=== PATIENT | female | born 1985 | race Caucasian/White ===

== ENCOUNTER 2018-04-19 10:36 | Emergency (ER) | payer BC ==
[2018-04-19 11:31] VITALS: BP 126/88
--- NOTE | 2018-04-19 11:43 | UC ---
General HPI - HPI Summary HPI Summary: PT NOTED A STY TO HER L UPPER EYE LID THE PAST FEW DAYS THAT SHE WAS WARM COMPRESSING. LAST PM IT CAME TO A HEAD. SHE APPLIED PRESSURE IT IT RUPTURED. DRY BLOOD TO SITE TODAY. WANTS TO MAKE SURE IT LOOKS OK. - History of Current Complaint Chief Complaint: UCYogesh Stated Complaint: LEFT EYE CONCERN Time Seen by Provider: 04/19/18 11:34 Hx Obtained From: Patient Hx Last Menstrual Period: 04/19/18 Onset/Duration: Gradual Onset Timing: Constant Pain Intensity: 0 Associated Signs & Symptoms: Negative: Fever - Allergy/Home Medications Allergies/Adverse Reactions: Allergies Allergy/AdvReac Type Severity Reaction Status Date / Time No Known Allergies Allergy Verified 04/19/18 11:26 Home Medications: Home Medications Dextroamphetamine/Amphetamine [Adderall Xr 30 mg Capsule] 30 mg PO ONCE PRN [History Confirmed 04/19/18] PMH/Surg Hx/FS Hx/Imm Hx - Additional Past Medical History Additional PMH: ADD - Surgical History Surgical History: None - Family History Known Family History: Positive: Non-Contributory - Social History Alcohol Use: None Substance Use Type: None Smoking Status (MU): Never Smoked Tobacco - Immunization History Vaccination Up to Date: Yes Review of Systems All Other Systems Reviewed And Are Negative: Yes Constitutional: Positive: Negative Skin: Positive: Negative Eyes: Positive: Negative ENT: Positive: Negative Respiratory: Positive: Negative Cardiovascular: Positive: Negative Gastrointestinal: Positive: Negative Genitourinary: Positive: Negative Motor: Positive: Negative Neurovascular: Positive: Negative Musculoskeletal: Positive: Negative Neurological: Positive: Negative Psychological: Positive: Negative Physical Exam Triage Information Reviewed: Yes Appearance: Well-Appearing Vital Signs: Initial Vital Signs Temp 98 F 04/19/18 11:27 Pulse 98 04/19/18 11:27 Resp 16 04/19/18 11:27 BP 126/88 04/19/18 11:27 Pulse Ox 100 04/19/18 11:27 Vital Signs Reviewed: Yes Eyes: Positive: Other: - NO PERIORBITAL EDEMA OR ERYTHEMA. DRY SPOT OF BLOOD TO CENTER OF L UPPER MID LASH LINE. CONJUNCTIVA CLEAR. PERRL. EOMI. ENT: Positive: Normal ENT inspection, Other - NO AURICULAR ADENOPATHY. Neck: Positive: Supple, Nontender, No Lymphadenopathy Respiratory: Positive: Lungs clear, Normal breath sounds Cardiovascular: Positive: RRR, No Murmur Abdomen Description: Positive: Nontender, No Organomegaly, Soft Bowel Sounds: Positive: Present Musculoskeletal: Positive: ROM Intact Neurological: Positive: Alert Psychological: Positive: Age Appropriate Behavior Skin Exam: Normal Course/Dx - Course Course Of Treatment: RUPTURED STY. NO CELLULITIS - Differential Dx - Multi-Symptom Provider Diagnoses: STY L UPPER LID Discharge - Sign-Out/Discharge Documenting (check all that apply): Patient Departure All imaging exams completed and their final reports reviewed: No Studies - Discharge Plan Condition: Stable Disposition: HOME Prescriptions: Erythromycin OPTH OINT* [Erythromycin 0.5% OPTH OINT*] 1 applic LEFT EYE TID 7 Days #1 ophth.oint Patient Education Materials: Goldy (ED) Referrals: DENISSE Pisano [Medical Doctor] - Additional Instructions: FOLLOW UP IN 5-7 DAYS IF NOT BETTER OR SOONER IF WORSE. - Billing Disposition and Condition Condition: STABLE Disposition: Home
== END 2018-04-19 11:53 | disposition home or self-care (01) ==
LOC: UCCORT 10:36
DX: H00.014 Hordeolum externum left upper eyelid (principal); F98.8 Other specified behavioral and emotional disorders with onset usually occurring in childhood and adolescence; Z79.899 Other long term (current) drug therapy
CPT/HCPCS: 99202; G0463